=== PATIENT | male | born 1980 | race Caucasian/White ===

== ENCOUNTER 2020-05-10 02:13 | Emergency (ER) | payer BC, SELFPAY ==
[2020-05-10] VITALS (20 sets, daily range): BP systolic 125–143; BP diastolic 76–88; PULSE 44–67; RESP 12–19; TEMP 36.4; O2SAT 96–100
--- NOTE | ~2020-05-10 | XR_ITS ---
EXAMINATION: XR chest 2V DATE: 05/10/2020 02:40 INDICATION: Chest pain. TECHNIQUE: Frontal and lateral views of the chest were obtained. COMPARISON: None. FINDINGS: The chest demonstrates clear lungs without pneumonia, pleural effusion, or pneumothorax. Th e heart size is normal. IMPRESSION: 1. No acute cardiopulmonary disease. Reviewed, dictated and finalized at location A. AL SURGEON
--- NOTE | 2020-05-10 02:22 | ECG_ITS ---
Measurements Intervals [place] Rate: 54 P: 22 W[place]: 182 QRS: -31 QRSD: 106 T: 6 QT: 387 QTc: 367 Interpretive Statements SINUS BRADYCARDIA MARKED LEFT AXIS DEVIATION BORDERLINE T WAVE ABNORMALITY- INFERIOR LEADS BASELINE ARTIFACT- I, II, III, AVR, AVL, AVF BORDERLINE ECG Electronically Signed On 05-10-2020 7:26:16 [employer] by Deuce Le D.O.
[2020-05-10 02:29] LABS: Basophils Percent Auto 0.8 % (0.2-1.2); Eosinophils Absolute Auto 0.2 K/mm3 (0-0.3); Eosinophils Percent Auto 4.2 % (0-4.4); Hematocrit 49.1 % (42.0-52.0); Hemoglobin 16.4 g/dL (14.0-18.0); Immature Granulocyte Absolute 0.03 K/mm3 (0.00-0.031); Immature Granulocyte Percent A 0.6 % (0-0.5); Lymphocytes Absolute Auto 1.29 K/mm3 (0.9-3.2); Lymphocytes Percent Auto 26.8 % (18.3-44.2); Mean Corpuscular HGB Conc 33.4 g/dl (32-36); Mean Corpuscular Hemoglobin 28.7 pg (26-34); Mean Platelet Volume 10.1 fl (7.4-10.4); Monocytes Absolute Auto 0.6 K/mm3 (0.1-0.6); Monocytes Percent Auto 12.5 % (2.6-8.5); Neutrophils Absolute Auto 2.7 K/mm3 (1.3-6.7); Neutrophils Percent Auto 55.1 % (45.5-73.1); Platelet Count Result 198 k/mm3 (150-375); Red Blood Count 5.71 M/mm3 (4.6-6.20); Red Cell Distribution Width 12.8 % (11.5-14.5); White Blood Count 4.8 K/mm3 (4.5-10.0)
[2020-05-10 02:39] LABS: INR 0.9; Partial Thromboplastin Time 26.7 SECONDS (22.3-36.8); Prothrombin Time 12.2 Seconds (11.1-14.7)
[2020-05-10 02:41] LABS: Anion Gap 6 mmol/L (8-16); Blood Urea Nitrogen 11 mg/dL (9-20); Calcium 9.8 mg/dL (8.4-10.2); Carbon Dioxide 34 mmol/L (22-30); Chloride 101 mmol/L (98-107); Estimated CRCL calculation 123 ml/min; Estimated Glomerular Filt Rate > 60; Glucose 125 mg/dL (75-110); Potassium 3.7 mmol/L (3.4-5.0); Sodium 141 mmol/L (137-145)
[2020-05-10 02:45] LABS: Alanine Aminotransferase 62 U/L (4-50); Albumin Level 4.5 g/dL (3.5-5.1); Alkaline Phosphatase 73 U/L (38-126); Aspartate Amino Transferase 37 U/L (17-59); Bilirubin,Total 0.4 mg/dL (0.2-1.3); Lipase 113 U/L (23-300)
[2020-05-10 02:53] LABS: Troponin I < 0.012 ng/mL (0.000-0.034)
[2020-05-10] MEDS: NITROGLYCERIN SL 0.4 MG TABLET SUBLINGUAL (03:04)
[2020-05-10] MEDS: ASPIRIN 81 MG CHEWABLE TABLET 324 MG PO (03:05)
--- NOTE | 2020-05-10 03:12 | PC.NURSE ---
Second 0.4mg Nitro tablet given 5 minutes after first administration. Patient still reports chest pain prior to second dose.
--- NOTE | 2020-05-10 03:18 | ED.GENADULT ---
HPI - General Adult General Chief complaint: Chest Pain Stated complaint: CP Time Seen by Provider: 05/10/20 02:27 History of Present Illness HPI narrative: Patient is a 39-year-old gentleman who presents the emergency department with chief complaint of chest pain. Patient reports has been having a uncomfortable feeling in the middle portion of his chest this evening reports that it is nonradiating denies shortness of breath denies diaphoresis reports that he has been followed by cardiology before and has had a cardiac bridge procedure done. Patient denies diaphoresis denies known vascular disease. Related Data Allergies Allergy/AdvReac Type Severity Reaction Status Date / Time No Known Allergies Allergy Unknown Unverified 08/26/13 21:32 Review of Systems Review of Systems: Narrative: A 10 system review of systems was completed on the patient and is negative except for what is stated in the HPI. Nursing and ancillary documentation was reviewed. [facility] Family History Family History Other Cerebrovascular accident Family history of cardiovascular disease Hypertension Social History Social History Smoking status: Never smoker Alcohol intake: current Exam Narrative: Exam Narrative: GENERAL: Well-appearing, well-nourished, and in no acute distress. HEAD: Normocephalic, atraumatic. EYES: PERRLA and EOMI. ENT: Nares clear, no rhinorrhea or epistaxis. Mucous membranes moist. NECK: Supple. CHEST: Clear to auscultation. No respiratory distress. HEART: Regular rate and rhythm. No murmur heard. Normal peripheral pulses. ABDOMEN: Soft, nontender, nondistended, normal active bowel sounds. EXTREMITIES: Normal range of motion. No edema. SKIN: Warm, dry, no rash. NEURO: No focal deficits. Alert and oriented x3. PSYCH: Normal mood and affect. Course Course Emergency Course: Patient's initial EKG showed no evidence of acute ST elevations. Vital Signs Vital signs: Vital Signs Temperature 36.4 C L 05/10/20 02:18 Pulse Rate 56 L 05/10/20 02:18 Respiratory Rate 14 05/10/20 02:18 Blood Pressure 143/85 H 05/10/20 02:18 Pulse Oximetry 100 05/10/20 02:18 Temperature 36.4 C L 05/10/20 02:18 Pulse Rate 44 L 05/10/20 05:30 Respiratory Rate 12 05/10/20 05:30 Blood Pressure 125/78 05/10/20 04:46 Pulse Oximetry 99 05/10/20 05:30 Medical Decision Making Vital Signs Vital Signs: Vital Signs Temperature 36.4 C L 05/10/20 02:18 Pulse Rate 56 L 05/10/20 02:18 Respiratory Rate 14 05/10/20 02:18 Blood Pressure 143/85 H 05/10/20 02:18 Pulse Oximetry 100 05/10/20 02:18 Temperature 36.4 C L 05/10/20 02:18 Pulse Rate 44 L 05/10/20 05:30 Respiratory Rate 12 05/10/20 05:30 Blood Pressure 125/78 05/10/20 04:46 Pulse Oximetry 99 05/10/20 05:30 Lab Data Result diagrams: 05/10/20 02:23 05/10/20 02:23 Labs: Lab Results 05/10/20 05/10/20 05/10/20 Range/Units 02:23 02:23 02:23 WBC 4.8 (4.5-10.0) K/mm3 RBC 5.71 (4.6-6.20) M/mm3 Hgb 16.4 (14.0-18.0) g/dL Hct 49.1 (42.0-52.0) % MCV 86.0 (80-100) fl MCH 28.7 (26-34) pg MCHC 33.4 (32-36) g/dl RDW 12.8 (11.5-14.5) % Plt Count 198 (150-375) k/mm3 MPV 10.1 (7.4-10.4) fl Immature Gran % (Auto) 0.6 H (0-0.5) % Neut % (Auto) 55.1 (45.5-73.1) % Lymph % (Auto) 26.8 (18.3-44.2) % [place] % (Auto) 12.5 H (2.6-8.5) % Eos % (Auto) 4.2 (0-4.4) % Baso % (Auto) 0.8 (0.2-1.2) % Lymph # (Auto) 1.29 (0.9-3.2) K/mm3 [place] # (Auto) 0.6 (0.1-0.6) K/mm3 Eos # (Auto) 0.2 (0-0.3) K/mm3 Baso # (Auto) 0.0 (0.0-0.1) K/mm3 Abs Immat Gran (auto) 0.03 (0.00-0.031) K/mm3 Absolute Neuts (auto) 2.7 (1.3-6.7) K/mm3 Absolute Nucleated RBC 0.0 (0.0-0.012) K/mm3 Nucleated RBC % 0.0 (0.0
[2020-05-10 05:40] LABS: Troponin I < 0.012 ng/mL (0.000-0.034)
[2020-05-10] MEDS: BELLADONNA ALK/PHENOB ELIX 10 ML, MAG HYDROX/ALUMINUM HYD/SIMETH 30 ML, LIDOCAINE HCL 2... PO (05:53)
== END 2020-05-10 06:00 | disposition home or self-care (01) ==
PROVIDERS: Emergency Provider Emergency Medicine; PCP Student in an Organized Health Care Education/Training Program
DX: R07.89 Other chest pain (principal)
CPT/HCPCS: 36415; 71046; 80048; 80076; 83690; 84484; 85025; 85610; 85730; 93005; 99284; A9270

== ENCOUNTER 2022-04-22 09:14 | Emergency (ER) | payer BC, SELFPAY ==
[2022-04-22 09:26] VITALS: BP 124/81; PULSE 75; RESP 16; TEMP 36.6; O2SAT 98
--- NOTE | 2022-04-22 09:55 | ED.URI ---
HPI - URI/Sore Throat General Chief Complaint: Upper Respiratory Infection Stated Complaint: sore throat History of Present Illness HPI Narrative: 41-year-old male presented for complaint of sore throat, mild nasal drainage, and headache. Onset last night. Denies associated cough, shortness of breath, wheezing, nausea, vomiting, diarrhea, fevers or chills. Not taking anything for symptoms. He denies known sick contacts, but states he is around children. Related Data Home Medications Medication Instructions Recorded Confirmed fluoxetine 20 mg capsule 20 mg PO DAILY 04/22/22 04/22/22 rosuvastatin 20 mg tablet 20 mg PO DAILY 04/22/22 04/22/22 Allergies Allergy/AdvReac Type Severity Reaction Status Date / Time No Known Allergies Allergy Unknown Unverified 08/26/13 21:32 Review of Systems Review of Systems: CONSTITUTIONAL: Denies body aches, fever, chills, or sweats. EYES: Denies visual changes, redness, or discharge. ENT: Denies congestion, or otalgia. CARDIOVASCULAR: Denies chest pain, palpitations, or edema. RESPIRATORY: Denies dyspnea. GASTROINTESTINAL: Denies abdominal pain, nausea, vomiting, or diarrhea. SKIN: Denies rash, itching, or wounds. MUSCULOSKELETAL: Denies back pain, joint pain, or myalgia. NEUROLOGIC: Denies headache PMFSH Past Medical History Medical History (Updated 04/22/22 @ 09:57 by Chelsi Sweeney APRN) No pertinent past medical history Family History Family History Other Cerebrovascular accident Family history of cardiovascular disease Hypertension Social History Social History Smoking status: Never smoker Alcohol intake: current Exam Narrative: GENERAL: well-appearing EYES: conjunctivae clear ENT: Mucous membranes moist. TM pearly garcia with normal light reflex bilaterally; no tragal tenderness. Oropharynx normal without lesions. Tonsils without exudate. No drooling, no hoarseness, no trismus, uvula midline. No tripod positioning, hot potato voice, or soft palate swelling. NECK: Supple. No lymphadenopathy CHEST: Clear to auscultation, breath sounds equal. No respiratory distress, speaks in full sentences. HEART: Regular rate and rhythm. No murmur heard. SKIN: Warm, dry, no rash. NEURO: Alert and oriented x3. Course Course Emergency Course: Patient is aware of diagnosis, understands and agrees to treatment plan. Anticipatory guidance given. Patient agrees to follow-up as directed and is aware of reasons to seek care at the emergency department. Portions of this record may have been created with voice recognition software Level of Care: Express Care Visit Vital Signs Vital signs: Vital Signs Temperature 97.8 F 04/22/22 09:26 Pulse Rate 75 04/22/22 09:26 Respiratory Rate 16 04/22/22 09:26 Blood Pressure 124/81 04/22/22 09:26 Pulse Oximetry 98 04/22/22 09:26 Temperature 97.8 F 04/22/22 09:26 Pulse Rate 75 04/22/22 09:26 Respiratory Rate 16 04/22/22 09:26 Blood Pressure 124/81 04/22/22 09:26 Pulse Oximetry 98 04/22/22 09:26 MDM - URI/Sore Throat MDM Narrative Medical decision making narrative: strep result reviewed with pt. Advise supportive treatments. Patient is appropriate for outpatient treatment and follow-up. Differential Diagnosis Differential diagnosis: Likely upper respiratory infection, viral infection and pharyngitis Lab Data Labs: Strep Screen Presumptive Negative *(Reference Range: Negative)* Discharge Plan Discharge Clinical Impression: Upper respiratory infection Patient Disposition: Home, Self-Care Condition: Stable Instructions: Pharyngitis (ED) Additional Instructions: Rapid strep swab was negative today You will be notified in a few days if the culture comes back positive for strep, and appr
== END 2022-04-22 09:59 | disposition home or self-care (01) ==
PROVIDERS: Emergency Provider Nurse Practitioner Family; PCP Student in an Organized Health Care Education/Training Program
DX: J06.9 Acute upper respiratory infection, unspecified (principal)
CPT/HCPCS: 87081; 87880; 99213; G0463

== ENCOUNTER → 2022-05-19 09:11 | Outpatient (CLI) | payer BC, SELFPAY ==
--- NOTE | ~2022-05-19 | US_ITS ---
Limited Abdominal Sonogram: Real-time sonographic imaging of the right upper quadrant was performed. Clinical History: Abnormal liver enzymes Findings: The liver appears normal with no evidence of mass lesion or bile duct dilatation. Main por rhonda vein demonstrates normal direction of flow. The gallbladder is well distended, and contains echog enic, shadowing gallstone. No gallbladder wall thickening. The common bile duct measures 6 mm. The v isualized pancreas, aorta, and IVC are unremarkable. Impression: Cholelithiasis. Reviewed, dictated and finalized at location M. Impression: Cholelithiasis.
== END ==
PROVIDERS: PCP Student in an Organized Health Care Education/Training Program; Visit Provider Student in an Organized Health Care Education/Training Program
DX: R74.8 Abnormal levels of other serum enzymes (principal); K80.20 Calculus of gallbladder without cholecystitis without obstruction
CPT/HCPCS: 76705

== ENCOUNTER 2023-02-02 13:49 | Emergency (ER) | payer BC, SELFPAY ==
[2023-02-02 14:16] VITALS: BP 116/69; PULSE 84; RESP 16; TEMP 36.7; O2SAT 100
--- NOTE | 2023-02-02 15:37 | ED.WOUNDLAC ---
HPI - Wound/Laceration General Chief Complaint: Wound/Laceration Stated Complaint: L FINGER LACERATION Time Seen by Provider: 02/02/23 15:00 Source: patient Mode of arrival: ambulatory Limitations: no limitations History of Present Illness HPI narrative: 42 year old male presents to [facility] with complaints of slicing vegetables this afternoon and cutting the tip of his left thumb.Patient has small flap like laceration to the tip of left thumb with no injury to nail. Patient reports that his tetanus is not up to date. Wound soaked in antiseptic soap and saline and irrigated prior to suturing. Onset (ago): hour(s) (within hour prior to arrival) Location: other (left thumb) Place: home Patient tetanus UTD: No Treatments prior to arrival: bandage Related Data Home Medications Medication Instructions Recorded Confirmed fluoxetine 20 mg capsule 20 mg PO DAILY 04/22/22 04/22/22 rosuvastatin 20 mg tablet 20 mg PO DAILY 04/22/22 04/22/22 Allergies Allergy/AdvReac Type Severity Reaction Status Date / Time No Known Allergies Allergy Unknown Unverified 08/26/13 21:32 Review of Systems Review of Systems: CONSTITUTIONAL: Denies fever, chills, or sweats. CARDIOVASCULAR: Denies chest pain, palpitations, or edema. RESPIRATORY: Denies cough or dyspnea.type SKIN: Reports laceration to the tip of his left thumb flap type of laceration. MUSCULOSKELETAL: Denies musculoskeletal pain NEUROLOGIC: Denies numbness, or weakness. All systems reviewed & are unremarkable except as noted in HPI and below ( ) [facility] Past Medical History Medical History Anxiety Elevated cholesterol Surgical History Surgical History (Updated 02/03/23 @ 15:32 by Erlinda Anton NP) H/O left inguinal hernia repair Family History Family History Other Cerebrovascular accident Family history of cardiovascular disease Hypertension Social History Social History (Updated 02/03/23 @ 15:31 by Erlinda Anton NP) Smoking status: Never smoker Alcohol intake: current Alcohol use details: social Substance use type: does not use Living arrangements: with family Gender identity (if verbalized by the patient): Male Comments At time of signature, agree with nursing past medical, surgical, social and family history. There is no relevant family history pertinent to the presenting complaint Exam Narrative: GENERAL: Well-appearing, well-nourished, and in no acute distress. HEAD: Normocephalic, atraumatic. NECK: Supple.no lymphadenopathy CHEST: Clear to auscultation. No respiratory distress.SAO2 100% on room air HEART: Regular rate and rhythm. No murmur heard. Normal peripheral pulses. EXTREMITIES: Normal range of motion. No edema. SKIN: Warm, dry, no rash. Reports small flap type of laceration to the tip of left thumb with bleeding controlled, no injury to nail NEURO: No focal deficits. Alert and oriented x3. Course Course Level of Care: Express Care Visit Vital Signs Vital signs: Vital Signs Temperature 36.7 C 02/02/23 14:16 Pulse Rate 84 02/02/23 14:16 Respiratory Rate 16 02/02/23 14:16 Blood Pressure 116/69 02/02/23 14:16 Pulse Oximetry 100 02/02/23 14:16 Temperature 36.7 C 02/02/23 14:16 Pulse Rate 84 02/02/23 14:16 Respiratory Rate 16 02/02/23 14:16 Blood Pressure 116/69 02/02/23 14:16 Pulse Oximetry 100 02/02/23 14:16 Procedures Laceration thumb: Date: 02/02/23 Time: 15:40 Site: hand (thumb distal) Size (cm): 0.2 Description: flap Depth: simple, single layer Local Anesthetic: lidocaine 1% Amount of anesthesia used (mL): 1 Pre-repair: wound explored, irrigated and irrigated extensively ====== Skin Level ====== Skin layer closed with: nylon Size (cm): 4-0 Number of sutur
[2023-02-02] MEDS: TETANUS,DIPHTHERIA,AC PERTUSSIS ADULT (0.5 ML) BOOSTRIX IM (16:00)
== END 2023-02-02 16:33 | disposition home or self-care (01) ==
PROVIDERS: Emergency Provider Registered Nurse; PCP Student in an Organized Health Care Education/Training Program
DX: S61.012A Laceration without foreign body of left thumb without damage to nail, initial encounter (principal); W45.8XXA Other foreign body or object entering through skin, initial encounter; Y93.G1 Activity, food preparation and clean up; Z23 Encounter for immunization; F41.9 Anxiety disorder, unspecified; E78.00 Pure hypercholesterolemia, unspecified
CPT/HCPCS: 12001; 90471; 90715; 99212; G0463

== ENCOUNTER 2023-04-21 10:23 | Outpatient (CLI) | payer BC, SELFPAY ==
[2023-04-21 11:05] LABS: Hematocrit 55.8 % (42.0-52.0); Hemoglobin 18.2 g/dL (14.0-18.0); Mean Corpuscular HGB Conc 32.6 g/dl (32-36); Mean Corpuscular Hemoglobin 28.5 pg (26-34); Mean Corpuscular Volume 87.3 fl (80-100); Mean Platelet Volume 10.6 fl (7.4-10.4); Platelet Count Result 212 k/mm3 (150-375); Red Blood Count 6.39 M/mm3 (4.6-6.20); Red Cell Distribution Width 13.6 % (11.5-14.5); White Blood Count 9.4 K/mm3 (4.5-10.0)
[2023-04-21 11:07] LABS: Alanine Aminotransferase 57 U/L (6-50); Albumin Level 4.7 g/dL (3.5-5.1); Alkaline Phosphatase 73 U/L (38-126); Anion Gap 8 mmol/L (8-16); Aspartate Amino Transferase 37 U/L (17-59); Bilirubin,Total 0.7 mg/dL (0.2-1.3); Blood Urea Nitrogen 8 mg/dL (9-20); Calcium 9.3 mg/dL (8.4-10.2); Carbon Dioxide 28 mmol/L (22-30); Chloride 103 mmol/L (98-107); Estimated Glomerular Filt Rate > 60; Glucose 94 mg/dL (65-110); Potassium 4.2 mmol/L (3.4-5.0); Prothrombin Time 13.6 Seconds (11.1-14.7); Sodium 139 mmol/L (137-145)
[2023-04-21 12:12] LABS: Erythrocyte Sedimentation Rate 1 mm/hr (0-20)
[2023-04-23 20:26] LABS: Mitochondrial (M2) Ab (IgG) <=20.0 U (<=20.0)
[2023-04-25 11:58] LABS: Actin Antibody (IgG) <20 U (<20)
[2023-04-26 20:50] LABS: Alpha-1-Antitrypsin, QN 88 mg/dL (83-199)
[2023-04-27 02:19] LABS: Immunoglobulin A 176 mg/dL (47-310); TTG IGA AB <1.0 U/mL (<15.0)
[2023-04-27 04:44] LABS: LKM 1 Antibody <=20.0 U (<=20.0)
[2023-04-27 12:04] LABS: ANA Titer 1:40 (Negative); Anti Nuclear Antibody Pattern Nuclear, Speckled; Anti Nuclear Antibody Titer 1:40 (Negative)
[2023-04-29 14:42] LABS: ALT 43 U/L (9-46); Alpha Fetoprotein Tumor Marker 1.6 ng/mL (<6.1); Alpha-2-Macroglobulin 223 mg/dL (106-279); Apolipoprotein A1 118 mg/dL (94-176); Fibrosis Stage F0; GGT 15 U/L (3-95); Haptoglobin 142 mg/dL (43-212); Necroinflammat Act Grade A0-A1; Total Bilirubin 0.4 mg/dL (0.2-1.2)
== END 2023-04-21 10:24 | disposition home or self-care (01) ==
LOC: ANHLAB 10:24
PROVIDERS: PCP Student in an Organized Health Care Education/Training Program; Visit Provider Nurse Practitioner
DX: K21.9 Gastro-esophageal reflux disease without esophagitis (principal); K74.60 Unspecified cirrhosis of liver; K90.41 Non-celiac gluten sensitivity; R14.0 Abdominal distension (gaseous); R19.7 Diarrhea, unspecified; R53.83 Other fatigue; R74.01 Elevation of levels of liver transaminase levels; Z83.79 Family history of other diseases of the digestive system
CPT/HCPCS: 36415; 80053; 81596; 82103; 82105; 82728; 82784; 83520; 85027; 85610; 85652; 86038; 86039; 86364; 86376

== ENCOUNTER 2023-04-26 11:32 | Emergency (ER) | payer BC, SELFPAY ==
[2023-04-26 11:42] VITALS: BP 119/84; PULSE 85; RESP 16; TEMP 36.9; O2SAT 97
--- NOTE | 2023-04-26 12:10 | ED.URI ---
HPI - URI/Sore Throat General Chief Complaint: Upper Respiratory Infection Stated Complaint: sore throat/cough/torres Time Seen by Provider: 04/26/23 12:10 Source: patient, RN notes reviewed and old records reviewed Mode of arrival: ambulatory Limitations: no limitations History of Present Illness HPI Narrative: 42-year-old male who presents to [facility] Care with complaints of a congestion and drainage with low-grade fevers some sore throat and dry cough starting on 6 days ago. Patient reports that his cough symptoms increased on Tuesday and he felt a little short of breath with activity this morning. Patient states that sinus drainage and congestion is a little better and he has not had a fever lately. Patient has not taken any OTC medications for his symptoms. MD elicited complaint: cough, sore throat and other (headache) Onset (ago): day(s) (6) Pain scale (0-10): 3 Able to tolerate fluids by mouth: Yes Treatments prior to arrival: none Related Data Home Medications Medication Instructions Recorded Confirmed cholecalciferol (vitamin D3) 50 50 mcg PO DAILY 04/21/23 04/26/23 mcg (2,000 unit) tablet simvastatin 10 mg tablet 10 mg PO DAILY 04/21/23 04/26/23 Allergies Allergy/AdvReac Type Severity Reaction Status Date / Time No Known Allergies Allergy Unknown Unverified 04/26/23 11:59 Review of Systems Review of Systems: CONSTITUTIONAL:Reports malaise,initial some chills, sweats, or fever. no recent fever EYES: Denies visual changes, redness, or discharge. ENT: Reports rhinorrhea, congestion, sinus pain, otalgia and positive for sore throat CARDIOVASCULAR: Denies chest pain, palpitations, or edema. RESPIRATORY: Reports cough.?Report some dyspnea with exertion today GASTROINTESTINAL: Denies abdominal pain, nausea, vomiting, diarrhea SKIN: Denies rash or itching. MUSCULOSKELETAL: Reports some myalgia. NEUROLOGIC: Denies headache. All systems reviewed & are unremarkable except as noted in HPI and below PMFSH Past Medical History Medical History (Updated 04/28/23 @ 09:51 by Erlinda Anton NP) Anxiety Bloating Diarrhea Elevated ALT measurement Elevated cholesterol Family history of Crohn's disease Fatigue GERD (gastroesophageal reflux disease) Gluten intolerance HLD (hyperlipidemia) Obesity Surgical History Surgical History H/O left inguinal hernia repair Family History Family History Other Cerebrovascular accident Family history of cardiovascular disease Hypertension Social History Social History Smoking status: Never smoker Alcohol intake: current Alcohol use details: social Substance use type: does not use Living arrangements: with family Gender identity (if verbalized by the patient): Male Comments At time of signature, agree with nursing past medical, surgical, social and family history. There is no relevant family history pertinent to the presenting complaint Exam Narrative: GENERAL: Well-appearing, well-nourished, and in no acute distress. HEAD: Normocephalic EYES: PERRLA, conjunctivae clear ENT: Nares clear, turbinates edematous and erythematous, clear discharge. Mucous membranes moist. TM pearly garcia with dull light reflex bilaterally; no tragal tenderness. Oropharynx erythematous without lesions. Tonsils not enlarged and without exudate, no drooling, no hoarseness, no trismus, uvula midline.post nasal drainage NECK: Supple. No lymphadenopathy CHEST: Clear to auscultation, breath sounds equal. No wheezing, rhonchi, rales, or stridor. No respiratory distress, speaks in full sentences.cough noted SAO2 97% on room air HEART: Regular rate and rhythm. No murmur heard. SKIN: Warm, dry, no rash. NEURO: Alert and oriented x3. PSYCH: Normal mood and affect Course Cour
== END 2023-04-26 12:34 | disposition home or self-care (01) ==
PROVIDERS: Emergency Provider Registered Nurse; PCP Student in an Organized Health Care Education/Training Program
DX: J06.9 Acute upper respiratory infection, unspecified (principal); R05.9 Cough, unspecified; Z20.822 Contact with and (suspected) exposure to COVID-19; E78.00 Pure hypercholesterolemia, unspecified; K21.9 Gastro-esophageal reflux disease without esophagitis; E78.5 Hyperlipidemia, unspecified; E66.9 Obesity, unspecified; Z68.33 Body mass index [BMI] 33.0-33.9, adult
CPT/HCPCS: 87081; 87426; 87804; 87880; 99213; G0463

== ENCOUNTER 2023-07-15 10:10 | Outpatient (CLI) | payer BC, SELFPAY ==
[2023-07-15 10:14] LABS: CRP < 0.5 mg/dL (<1.0); Creatine Kinase 80 U/L (55-170)
[2023-07-15 10:22] LABS: Iron 96 ug/dL (49-181)
[2023-07-15 10:36] LABS: Percent Iron Saturation 24 % (20-50)
[2023-07-15 10:52] LABS: Hepatitis B Surface Antigen Negative (Negative)
[2023-07-15 10:58] LABS: HAV RESULT Negative (Negative); Hepatitis B Core IgM Result Negative (Negative)
[2023-07-15 11:10] LABS: Hepatitis C Virus Antibody Negative (Negative)
[2023-07-15 11:15] LABS: Folic Acid 8.6 ng/mL (2.76->20)
[2023-07-18 12:58] LABS: Ceruloplasmin 26 mg/dL (14-30)
[2023-07-21 18:43] LABS: Calprotectin, Stool <5 mcg/g
[2023-07-23 15:14] LABS: Pancreatic Elastase, Stool 26 mcg/g
[2023-07-27 13:15] LABS: GGT 16
== END 2023-07-15 10:11 | disposition home or self-care (01) ==
PROVIDERS: PCP Student in an Organized Health Care Education/Training Program; Visit Provider Nurse Practitioner
DX: R74.01 Elevation of levels of liver transaminase levels (principal); K21.9 Gastro-esophageal reflux disease without esophagitis; K90.41 Non-celiac gluten sensitivity; R14.0 Abdominal distension (gaseous); R19.7 Diarrhea, unspecified; R53.83 Other fatigue; Z83.79 Family history of other diseases of the digestive system
CPT/HCPCS: 36415; 80074; 82390; 82550; 82607; 82653; 82746; 82977; 83540; 83550; 83993; 84443; 86140

== ENCOUNTER 2023-08-02 00:50 | Day surgery (SDC) | payer BC, SELFPAY ==
[2023-07-14 13:08] VITALS: BMI 32.5
[2023-08-02 07:52] VITALS: BP 128/90; PULSE 73; RESP 20; TEMP 36.1; O2SAT 99; BMI 32.4
[2023-08-02] MEDS: LACTATED RINGERS 1,000 ML 150 ML IV CONT (08:02)
--- NOTE | 2023-08-02 08:20 | P.PNAN_ITS ---
Anes - Initial Pre Proc Eval Procedure: Operation Date: 08/02/23 09:00 Proposed Procedures p Esophagogastroduodenoscopy & Colonoscopy - Burton Moreno MD Date/Time: 08/02/23 08:20 Surgeon: Burton Moreno MD Pre Op Diagnosis: GERD, Diarrhea, Abd. Distension Patient Data Age: 43 Gender: M Height: 1.75 m Weight: 99.7 kg Last Vital Signs Temp 96.9 F L 08/02/23 07:52 Pulse 73 08/02/23 07:52 Resp 20 08/02/23 07:52 BP 128/90 08/02/23 07:52 Pulse Ox 99 08/02/23 07:52 O2 Del Method Room Air 08/02/23 07:52 Allergies Allergy/AdvReac Type Severity Reaction Status Date / Time No Known Allergies Allergy Unknown Verified 08/02/23 07:50 Home Medications Medication Instructions Recorded Confirmed Type cholecalciferol (vitamin D3) 50 50 mcg PO DAILY 04/21/23 08/02/23 History mcg (2,000 unit) tablet simvastatin 10 mg tablet 10 mg PO DAILY 04/21/23 08/02/23 History Patient hx anesthesia problems: none Family hx anesthesia problems: none Results Review: All pre-operative results and documents have been reviewed as part of the pre- operative evaluation. [facility] Past Medical History Medical History Anxiety Bloating Diarrhea Elevated ALT measurement Elevated cholesterol Family history of Crohn's disease Fatigue (~05/02/23) GERD (gastroesophageal reflux disease) Gluten intolerance HLD (hyperlipidemia) Obesity Surgical History Surgical History H/O left inguinal hernia repair Family History Family History Other Cerebrovascular accident Family history of cardiovascular disease Hypertension Social History Social History Smoking status: Never smoker Alcohol intake: current Alcohol use details: social Substance use: never Substance use type: does not use Living arrangements: with family Gender identity (if verbalized by the patient): Male Spiritual care concerns: No Anes - Eval Final PreProcedure Day of Procedure 08/02/23 08:20 Patient weight: normal Heart: regular rate and rhythm Lungs: clear to auscultation Airway: Mallampati scale class II Neurological: alert and oriented Last oral intake: >/= 8 hours ASA classification: II Emergent: no Anesthetic plan: proceed Anesthesia type and monitoring: general GIVS and standard monitoring Results Review: All pre-operative results and documents have been reviewed as part of the pre- operative evaluation. Informed Consent: The patient's anesthetic plan and its attendant risks and benefits were discussed with the patient/family/POA. Questions were solicited and answers provided to the satisfaction of the patient/family/POA.
--- NOTE | 2023-08-02 08:35 | WPDHPUPDATE1 ---
History and Physical Update Update Date/Time: 08/02/23 08:35 History and Physical has been reviewed, including an updated exam of the patient. There are NO changes in the patient's condition. Risks, benefits, and alternatives have been discussed and questions answered. Patient agrees to proceed with procedure.
--- NOTE | 2023-08-02 08:46 | SUR.OPER ---
EGD: [id number] COLON: Start 845
[2023-08-02 08:56] VITALS: BP 107/74; PULSE 78; RESP 20; O2SAT 98
[2023-08-02 09:06] VITALS: BP 110/72; PULSE 67; RESP 19; O2SAT 98
[2023-08-02 09:16] VITALS: BP 109/68; PULSE 62; RESP 16; O2SAT 98
== END 2023-08-02 09:25 | disposition home or self-care (01) ==
PROVIDERS: PCP Student in an Organized Health Care Education/Training Program; Referring Provider Nurse Practitioner; Visit Provider Internal Medicine Gastroenterology
PROC: 0DJ08ZZ Inspection of Upper Intestinal Tract, Via Natural or Artificial Opening Endoscopic (ICD-10-PCS; CPT 43235; principal; 2023-08-02 09:00)
DX: K29.80 Duodenitis without bleeding (principal); K29.50 Unspecified chronic gastritis without bleeding; K21.00 Gastro-esophageal reflux disease with esophagitis, without bleeding; K64.8 Other hemorrhoids; E78.00 Pure hypercholesterolemia, unspecified; E66.9 Obesity, unspecified; Z68.32 Body mass index [BMI] 32.0-32.9, adult
CPT/HCPCS: 45380; 43239; 88305; J2704; J7120

== ENCOUNTER 2024-08-28 10:06 | Emergency (ER) | payer BC, SELFPAY ==
--- NOTE | ~2024-08-28 | XR_ITS ---
EXAMINATION: XR ankle LT min 3V DATE: 08/28/2024 10:42 INDICATION: Left ankle injury TECHNIQUE: Anteroposterior, oblique, mortise, and lateral views of the left ankle were obtained. COMPARISON: None. FINDINGS: Alignment is normal. No fracture. Joint spaces are well maintained. Small enthesopathic ossicle at t he distal Achilles tendon. No ankle joint effusion. The soft tissues are unremarkable. IMPRESSION: 1. No acute osseous abnormality. Reviewed, dictated and finalized at location B.
[2024-08-28 10:15] VITALS: BP 128/63; PULSE 78; RESP 16; TEMP 36.8; O2SAT 97
--- NOTE | 2024-08-28 10:15 | ED_ITS ---
HPI - Extremity Injury (Lower) General Chief Complaint: Extremity Injury, Lower Stated Complaint: lt ankle injury Time Seen by Provider: 08/28/24 11:28 Source: patient and RN notes reviewed Mode of arrival: ambulatory Limitations: no limitations History of Present Illness HPI Narrative: 44-year-old male presents with concern for left ankle pain. Reports about 2 months ago he twisted the ankle when he was walking and he reports it still hurts. Reports medial ankle pain. Reports the time swollen and bruised. He denies any intervention for the injury since that time. He reports he is going to [place] in a month and is concern for his continued pain when walking. He denies any decreased strength, sensation, range of motion ankle, digits of sweats. He reports no pain at rest, pain with certain movements and weight- bearing. MD complaint: ankle injury Related Data Home Medications ?Medication ?Instructions ?Recorded ?Confirmed ?Last Taken ?Type cholecalciferol (vitamin D3) 50 50 mcg PO DAILY 04/21/23 08/02/23 Unknown History mcg (2,000 unit) tablet simvastatin 10 mg tablet 10 mg PO DAILY 04/21/23 08/02/23 Unknown History Allergies Allergy/AdvReac Type Severity Reaction Status Date / Time No Known Allergies Allergy Unknown Verified 08/28/24 10:21 Review of Systems Review of Systems: CONSTITUTIONAL: Denies malaise, chills, sweats, or fever. SKIN: Denies rash or itching, open skin, laceration, abrasion, redness, warmth MUSCULOSKELETAL: Reports left ankle pain NEUROLOGIC: Denies numbness, weakness All systems reviewed & are unremarkable except as noted in HPI and below PMFSH Past Medical History Medical History Anxiety Bloating Diarrhea Elevated ALT measurement Elevated cholesterol Family history of Crohn's disease Fatigue (~05/02/23) GERD (gastroesophageal reflux disease) Gluten intolerance HLD (hyperlipidemia) Obesity Surgical History Surgical History H/O left inguinal hernia repair Family History Family History Other Cerebrovascular accident Family history of cardiovascular disease Hypertension Social History Social History Smoking status: Never smoker Alcohol intake: current Alcohol use details: social Substance use: never Substance use type: does not use Living arrangements: with family Gender identity (if verbalized by the patient): Male Spiritual care concerns: No Comments At time of signature, agree with nursing past medical, surgical, social and family history. There is no relevant family history pertinent to the presenting complaint Exam Narrative: GENERAL: Well-appearing, well-nourished, and in no acute distress. HEAD: Normocephalic, atraumatic. EYES: PERRLA, conjunctivae clear NECK: Supple. CHEST: Speaks in full sentences. No respiratory distress. HEART: Regular rate and rhythm. Normal and equal peripheral pulses. EXTREMITIES: Left ankle, foot, digits have grossly normal strength and sensation, grossly normal range of motion. Mild edema and very mild ecchymosis noted to the medial ankle. Normal sensation with sensitivity to light touch and pain. Medial tenderness. No open wounds, no skin tenting, no devitalized tissue or atrophy, no trophic changes, no obvious deformity, alignment normal, nearby joints and structures intact. Distal pulses palpable and equal bilaterally, skin warm, dry, pink. Capillary refill less than 3 seconds. SKIN: Warm, dry, no rash. NEURO: Alert and oriented x3. PSYCH: Normal mood and affect Course Course Emergency Course: Patient is aware of diagnosis, understands and agrees to treatment plan. Anticipatory guidance given. Patient agrees to follow-up as directed and is aware of reasons to seek care at the emergency department. Portions of this record may have been created with voice recognition software Level of Care: Express Care Visit Vital Signs Vital signs: Reviewed. MDM - Extremity Injury (Lower) MDM Narrative Medical decision making narrative: The patient was evaluated by myself in the express care. History is obtained from patient who is an independent historian and physical exam was performed.? Available medical records were reviewed at this time. ? Exam findings show no acute concerns or changes; patient is non-toxic appearing and is in no distress. Patient is appropriate for outpatient treatment and follow-up. ? I have evaluated and discussed social determinants of health with the patient that could potentially impact subsequent diagnosis and treatment plans. ? Patients injury and pain is consistent with musculoskeletal etiology. No signs of neurological or vascular compromise on exam. Compartments and tissues are soft without signs of compartment syndrome. Pain is felt appropriate for further evaluation on an outpatient basis. Imaging Data My impression: Images reviewed, interpreted by radiologist, agree, see report. Radiologist's impression: EXAMINATION: XR ankle LT min 3V DATE: 08/28/2024 10:42 INDICATION: Left ankle injury TECHNIQUE: Anteroposterior, oblique, mortise, and lateral views of the left ankle were obtained. COMPARISON: None. FINDINGS: Alignment is normal. No fracture. Joint spaces are well maintained. Small enthesopathic ossicle at the distal Achilles tendon. No ankle joint effusion. The soft tissues are unremarkable. IMPRESSION: 1. No acute osseous abnormality. Critical Care Time Critical Care Time Critical Care Time: No Discharge Plan Discharge Clinical Impression: Ankle injury Patient Disposition: Home Condition: Stable Instructions: Ankle Sprain (ED) Additional Instructions: Avoid activities that cause pain until the pain subsides. Ice to the area 20-30 minutes 4-6 times a day Elevate above heart Walking mood as directed for comfort Tylenol for lesser pain Ibuprofen regularly for the next 2-3 days for the inflammation Follow up with your primary care provider if the condition is not improving within 1 week. If the condition worsens with numbness, tingling, decrease sensation with weakness seek treatment in the emergency room immediately. Patient Language: Congolese Prescriptions: New (DME) Walking boot See Rx Instructions .Route .MEDSUPPLY Qty: 1 0RF Rx Instructions: As directed No Action simvastatin 10 mg tablet 10 mg PO DAILY cholecalciferol (vitamin D3) 50 mcg (2,000 unit) tablet 50 mcg PO DAILY Follow-up/Referrals: Jose Miller MD [Physician] - (ankle injury-pain for 1 month) Giovanni,DO Joe [Primary Care Provider] - Time of Disposition: 11:21
== END 2024-08-28 11:31 | disposition home or self-care (01) ==
PROVIDERS: Emergency Provider Nurse Practitioner; PCP Student in an Organized Health Care Education/Training Program
DX: S99.912A Unspecified injury of left ankle, initial encounter (principal); X58.XXXA Exposure to other specified factors, initial encounter; E78.00 Pure hypercholesterolemia, unspecified; K21.9 Gastro-esophageal reflux disease without esophagitis; E66.9 Obesity, unspecified; Z68.34 Body mass index [BMI] 34.0-34.9, adult; K90.41 Non-celiac gluten sensitivity
CPT/HCPCS: 73610; 99213; G0463